=== PATIENT | female | born 1990 | race American Indian/Alaskan Native ===

== ENCOUNTER 2016-08-04 10:12 | Emergency (ER) | payer OTHER ==
--- NOTE | 2016-08-04 11:06 | Emergency Department Report ---
Chief Complaint: Vaginal Bleeding Stated Complaint: ABD PAIN/VAGINAL BLEEDING Time Seen by Provider: 08/04/16 10:59 - HPI History of Present Illness: 25-year-old female presents today with vaginal bleeding since yesterday was doing some heavy lifting. Positive for home test 6. Last menstrual period was June 22 and states she had spotting July 13. Positive for rash or discharge and abdominal pain. Denies fever, chills, nausea, vomiting, urinary symptoms, chest pain, shortness of breath. - ROS Review of Systems: Per HPI - Exam Vital Signs: Vital Signs 08/04/16 10:46 Temperature 98.0 F Pulse Rate 79 Respiratory 16 Rate Blood Pressure 108/65 O2 Sat by Pulse 100 Oximetry Physical Exam: General: 25-year-old female in no acute distress. Well-developed, well- nourished. CV: Regular rate and rhythm. Lungs: Clear to auscultation bilaterally. Abdomen: Tenderness to palpation of the left lower quadrant. No guarding or rebound tenderness. MSE screening note: Focused history and physical exam performed. Due to findings the following was ordered: ED Disposition for MSE Condition: Stable
[2016-08-04 11:31] LABS: Basophils % (Auto) 0.3 % (0.0-1.8); Eosinophils % (Auto) 1.8 % (0.0-4.3); Hematocrit 36.9 % (30.3-42.9); Hemoglobin 12.3 gm/dl (10.1-14.3); Mean Corpuscular HGB Conc 33 % (30-34); Mean Corpuscular Hemoglobin 30 pg (28-32); Mean Corpuscular Volume 92 fl (79-97); Platelet Count 201 K/mm3 (140-440); Red Blood Count 4.03 M/mm3 (3.65-5.03); Red Cell Distribution Width 13.6 % (13.2-15.2); White Blood Count 4.9 K/mm3 (4.5-11.0)
[2016-08-04 11:43] LABS: BUN/Creatinine Ratio 13.33; Blood Urea Nitrogen 8 mg/dL (7-17); Carbon Dioxide 24 mmol/L (22-30); Chloride 105.2 mmol/L (98-107); Glucose 75 mg/dL (65-100); Potassium 3.7 mmol/L (3.6-5.0); Sodium 139 mmol/L (137-145)
[2016-08-04 11:49] LABS: Anion Gap 14 mmol/L
[2016-08-04 11:53] LABS: Bilirubin,Urine NEG (Negative); Blood,Urine NEG (Negative); Ketones,Urine NEG (Negative); Leukocyte Esterase,Urine SM (Negative); Mucus,Urine FEW /HPF; Nitrite,Urine NEG (Negative); Protein,Urine <15 mg/dL mg/dL (Negative); Urobilinogen,Urine < 2.0 mg/dL (<2.0)
--- NOTE | 2016-08-04 12:57 | Ultrasound Report ---
ULTRASOUND OB LESS THAN 14 WEEKS - TRANSABDOMINAL AND TRANSVAGINAL INDICATION: Vaginal bleeding. Serum beta-hCG of 163.5 units. COMPARISON: None similar. FINDINGS: Transabdominal and transvaginal pelvic sonography performed in this patient with LMP of 07/13/2016 and estimated menstrual age of 3 weeks and 1 day, though limited due to overlying bowel gas and patient's tolerance level. An anteverted uterus measuring approximately 8.2 x 3.2 x 4.1 cm demonstrates bilaminar endometrial thickness of approximately 1 cm towards the fundus on endovaginal image 7. Cervix closed. Minimal pelvic free fluid. Right ovary not visualized. Left ovary is 2.3 x 1.7 x 2.3 cm with a small, 8 mm follicular cyst. CONCLUSION: 1. No sonographic evidence of a viable intrauterine gestation at this time, as described. 2. Right ovary not visualized. Please also correlate clinically, with serial serum beta-hCG values and/or followup sonogram, as warranted. Thank you for the opportunity to participate in this patient's care.
[2016-08-04 20:29] VITALS: BP 122/73
[2016-08-04] MEDS ORDERED: TYLENOL PO ONE (21:08)
--- NOTE | 2016-08-04 21:15 | Emergency Department Report ---
HPI - General Chief Complaint: Vaginal Bleeding Time Seen by Provider: 08/04/16 10:59 - HPI HPI: The patient is a 25-year-old female , EGA 4 weeks, who presents for evaluation of abdominal pain. The patient reports constant cramping bilateral lower abdominal pain since 9 AM this morning, 10 out of 10 in severity, and associated with mild to moderate constant vaginal bleeding of same duration. The patient denies fever, chills, night sweats, diarrhea, blood in the stool, dark tarry stool, dysuria, hematuria, flank pain, genital discharge, inability to pass flatus. ED Past Medical Hx - Past Medical History Hx Hypertension: No Hx CVA: No Hx Heart Attack/AMI: No Hx Congestive Heart Failure: No Hx Diabetes: No Hx Deep Vein Thrombosis: No Hx Pulmonary Embolism: No Hx GERD: No Hx Liver Disease: No Hx Renal Disease: No Hx Sickle Cell Disease: No Hx Arthritis: No Hx Headaches / Migraines: No Hx Seizures: No Hx Kidney Stones: No Hx Psychiatric Treatment: No Hx Asthma: Yes Hx Tuberculosis: No Hx Dementia: No Hx HIV: No - Surgical History Hx Coronary Stent: No Hx Open Heart Surgery: No Hx Pacemaker: No Hx Internal Defibrillator: No Hx Cholecystectomy: No Hx Appendectomy: No Hx Breast Surgery: No - Social History Smoking Status: Never Smoker Substance Use Type: None - Medications Home Medications: Home Medications Medication Instructions Recorded Confirmed Last Taken Type Albuterol 2 puff IH BID PRN 01/05/16 08/04/16 Unknown History Acetaminophen/Codeine [Tylenol #3] 1 tab PO Q6H PRN #10 tab 08/04/16 Unknown Rx Ondansetron [Zofran TAB] 4 mg PO Q8HR PRN #14 tablet 08/04/16 Unknown Rx ED Review of Systems ROS: Stated complaint: ABD PAIN/VAGINAL BLEEDING Other details as noted in HPI Constitutional: denies: fever ENT: denies: throat or neck pain Respiratory: denies: cough, shortness of breath Cardiovascular: denies: chest pain Endocrine: denies unexplained weight loss or gain Gastrointestinal: reports abdominal pain, nausea Genitourinary: denies: dysuria Musculoskeletal: denies: leg swelling Skin: denies: rash Neurological: denies: headache Hematological/Lymphatic: denies: easy bleeding or easy bruising Psych: denies sadness or hopelessness Physical Exam - Physical Exam Vital Signs: Vital Signs 08/04/16 08/04/16 08/04/16 10:46 20:05 20:10 Temperature 98.0 F 98.7 F Pulse Rate 79 78 Respiratory 16 26 H 16 Rate Blood Pressure 108/65 Blood Pressure 122/73 [Left] O2 Sat by Pulse 100 99 99 Oximetry Physical Exam: General: well-nourished, well-developed, no acute distress Head: Normocephalic, atraumatic Eyes: normal sclera ENT: Mucous membranes are pink and moist Neck: trachea midline, neck supple Respiratory: Breath sounds equal bilaterally, no wheezing, rales, or rhonchi Cardio: S1 and S2 present, no murmurs, rubs, gallops, capillary refill is brisk Abdomen: Normoactive bowel sounds, soft abdomen, suprapubic and bilateral lower abd tenderness present, no rigidity, no guarding or rebound tenderness Musc: No pitting edema Skin: No rash Neuro: no facial drooping, normal speech Psych: Normal affect ED Course Vital Signs 08/04/16 08/04/16 08/04/16 10:46 20:05 20:10 Temperature 98.0 F 98.7 F Pulse Rate 79 78 Respiratory 16 26 H 16 Rate Blood Pressure 108/65 Blood Pressure 122/73 [Left] O2 Sat by Pulse 100 99 99 Oximetry ED Medical Decision Making - Lab Data Result diagrams: 08/04/16 11:14 08/04/16 11:14 - Medical Decision Making The patient was seen and examined by myself. The patient is placed on a aboriginal liaison officer and continuous pulse ox. On initial evaluation, the patient was found to be in no distress. Evaluation orders are placed. The patient given a tablet of Tylenol for her pain. Lab results revealed positive beta hCG of 135, and otherwise were non-concerning including WBC, hemoglobin, hematocrit, coags, and Rh+ blood type. Ultrasound the pelvis is negative for IUP. The patient is informed of suspicion of miscarriage versus ectopic . The patient was reevaluated and reported that their symptoms were markedly improved. The patient is stable for discharge with outpatient follow-up. The patient is given follow-up and return instructions, including to receive repeat beta hCG in 48 hours. The patient expressed understanding and agreed with the plan. The patient is discharged in stable condition. Critical care attestation.: If time is entered above; I have spent that time in minutes in the direct care of this critically ill patient, excluding procedure time. ED Disposition Clinical Impression: Threatened miscarriage in early , Abdominal pain, acute, periumbilical Disposition: DISCHARGED TO HOME OR SELFCARE Is pt being admited?: No Does the pt Need Aspirin: No Condition: Stable Instructions: Threatened Miscarriage (ED) Additional Instructions: Your ultrasound was unable to identify a normal intrauterine , and also was not able to rule out an ectopic . Make sure to follow-up with your [facility] within the next 48 hours for repeat B-HCG testing and trending. Your beta hCG level should double in 2 days if your is progressing as normal. You could have an ectopic and you must immediately present to an emergency department should you develop worsening of your symptoms or severe pain, vaginal bleeding, lightheadedness, passing out, confusion, or fever. Referrals: PRIMARY CARE [Primary Care Provider] - 3-5 Days [facility] [Provider Group] - 3-5 Days Time of Disposition: 21:11
== END 2016-08-04 21:42 | disposition home or self-care (01) ==
LOC: ED 10:12
DX: O20.0 Threatened abortion (principal); O26.891 Other specified pregnancy related conditions, first trimester; R10.33 Periumbilical pain; Z3A.01 Less than 8 weeks gestation of pregnancy
CPT/HCPCS: 36415; 76801; 76817; 80048; 81001; 84702; 85025; 86900; 86901

== ENCOUNTER 2017-11-21 11:39 | Emergency (ER) | payer OTHER ==
[2017-11-21] MEDS ORDERED: TYLENOL PO ONE (12:24)
--- NOTE | 2017-11-21 12:33 | Emergency Department Report ---
Chief Complaint: Earache Stated Complaint: FLU LIKE SYMPTOMS Time Seen by Provider: 11/21/17 12:23 - HPI History of Present Illness: 26 year-old female presents to the emergency department with a 4-5 day history of body aches, nausea without vomiting, fever, back pain, earache. The right ear is worse in the left. She was seen at [facility] 2 days ago and says that she was diagnosed with exhaustion. She feels like the symptoms are worse now. No recent travel or sick contacts at home. She denies any past medical history. - ROS Review of Systems: Positive for Back pain, body aches, occasional cough, fever Negative for dysuria, vaginal bleeding or discharge, chest pain, shortness of breath - Exam Vital Signs: Vital Signs 11/21/17 11:46 Temperature 100.8 F H Pulse Rate 92 H Respiratory 16 Rate Blood Pressure 116/65 O2 Sat by Pulse 100 Oximetry Physical Exam: Bilateral external ear canals and tympanic membranes appear normal. Normal oral pharynx. Heart and lungs are normal auscultation. Patient appears uncomfortable. MSE screening note: Focused history and physical exam performed. Due to findings the following was ordered: We have ordered a CBC, CMP, urinalysis, UTI and chest x-ray ED Disposition for MSE Condition: Stable Referrals: PRIMARY CARE, [Primary Care Provider] - 3-5 Days
[2017-11-21 12:57] LABS: Bilirubin,Urine NEG (Negative); Blood,Urine SM (Negative); Color,Urine Yellow (Yellow); Mucus,Urine FEW /HPF; Urobilinogen,Urine < 2.0 mg/dL (<2.0)
[2017-11-21 13:13] LABS: Basophils % (Auto) 0.4 % (0.0-1.8); Hematocrit 33.9 % (30.3-42.9); Hemoglobin 11.8 gm/dl (10.1-14.3); Lymphocytes % (Auto) 33.2 % (13.4-35.0); Mean Corpuscular HGB Conc 35 % (30-34); Mean Corpuscular Hemoglobin 31 pg (28-32); Mean Corpuscular Volume 88 fl (79-97); Monocytes # (Auto) 0.3 K/mm3 (0.0-0.8); Monocytes % (Auto) 8.3 % (0.0-7.3); Platelet Count 159 K/mm3 (140-440); Red Blood Count 3.86 M/mm3 (3.65-5.03); Red Cell Distribution Width 12.6 % (13.2-15.2)
[2017-11-21 13:31] LABS: Alanine Aminotransferase 10 units/L (7-56); Albumin 3.9 g/dL (3.9-5); BUN/Creatinine Ratio 10; Blood Urea Nitrogen 8 mg/dL (7-17); Calcium 8.9 mg/dL (8.4-10.2); Hemolysis Index 4
[2017-11-21] MEDS ORDERED: ZOFRAN IM ONE (14:38)
[2017-11-21] MEDS ORDERED: NACL 0.9% 1000 ML 1,000 ML IV ONE (14:38)
[2017-11-21] MEDS ORDERED: TORADOL IV ONE (14:38)
--- NOTE | 2017-11-21 15:59 | XRay Report ---
FINAL REPORT EXAM: XR CHEST ROUTINE 2V HISTORY: cough with fever TECHNIQUE: Frontal and lateral chest x-ray. PRIORS: None. FINDINGS: Cardiac and mediastinal silhouette within normal limits. Lungs are normally expanded, without significant vascular congestion. No focal consolidation, pleural effusion or apparent pneumothorax. Bony thorax grossly unremarkable. IMPRESSION: 1. No acute consolidation.
--- NOTE | 2017-11-21 17:16 | Emergency Department Report ---
HPI - General Chief Complaint: Earache Time Seen by Provider: 11/21/17 12:23 - HPI HPI: 26 year-old female presents to the emergency department with a 4-5 day history of body aches, nausea without vomiting, fever, back pain, earache. The right ear is worse in the left. She was seen at [facility] days ago and says that she was diagnosed with exhaustion. She feels like the symptoms are worse now. No recent travel or sick contacts at home. Nasal congestion proceeded symptoms that started 4-5 days ago. Denies that she has been having nasal congestion and runny nose over the last 2 weeks due to pollen. Denies any coughing, shortness of breath or chest pain. She denies any past medical history. Patient reports that she Prior to going to the [facility] ,she says she went somewhere else. She is having generalized body ache and earache at 4 out of 10. Achy nothing makes it better and nothing makes it worse. Patient denies any vaginal discharge, vaginal bleeding or any abdominal pain at present. Last menstrual cycle was 11/13/2017. She has no concern for STDs. ED Past Medical Hx - Past Medical History Previous Medical History?: Yes Hx Hypertension: No Hx CVA: No Hx Heart Attack/AMI: No Hx Congestive Heart Failure: No Hx Diabetes: No Hx Deep Vein Thrombosis: No Hx Pulmonary Embolism: No Hx GERD: No Hx Liver Disease: No Hx Renal Disease: No Hx Sickle Cell Disease: No Hx Arthritis: No Hx Headaches / Migraines: No Hx Seizures: No Hx Kidney Stones: No Hx Psychiatric Treatment: No Hx Asthma: Yes Hx Tuberculosis: No Hx Dementia: No Hx HIV: No - Surgical History Past Surgical History?: No Hx Coronary Stent: No Hx Open Heart Surgery: No Hx Pacemaker: No Hx Internal Defibrillator: No Hx Cholecystectomy: No Hx Appendectomy: No Hx Breast Surgery: No - Family History Family history: no significant - Social History Smoking Status: Never Smoker Substance Use Type: None - Medications Home Medications: Home Medications Medication Instructions Recorded Confirmed Last Taken Type Albuterol 2 puff IH BID PRN 01/05/16 08/04/16 Unknown History Acetaminophen/Codeine [Tylenol #3] 1 tab PO Q6H PRN #10 tab 08/04/16 Unknown Rx Ondansetron [Zofran TAB] 4 mg PO Q8HR PRN #14 tablet 08/04/16 Unknown Rx Amoxicillin/K Clav Tab [Augmentin 1 tab PO Q12HR 10 Days #20 tab 11/21/17 Unknown Rx 875 mg] Cetirizine HCl [ZyrTEC] 10 mg PO QAM 14 Days #14 tab-cap 11/21/17 Unknown Rx Fluticasone [Flonase] 1 spray NS QDAY 14 Days #1 bottle 11/21/17 Unknown Rx Ibuprofen [Motrin] 600 mg PO Q8H PRN #12 tablet 11/21/17 Unknown Rx ED Review of Systems ROS: Stated complaint: FLU LIKE SYMPTOMS Other details as noted in HPI Comment: All other systems reviewed and negative Constitutional: weakness Eyes: denies: eye pain, eye discharge ENT: ear pain, congestion. denies: throat pain, dental pain, hearing loss Respiratory: no symptoms reported Cardiovascular: denies: chest pain, palpitations, dyspnea on exertion, edema, syncope, paroxysmal nocturnal dyspnea Gastrointestinal: nausea. denies: abdominal pain, vomiting, diarrhea, constipation, hematemesis, melena, hematochezia Genitourinary: denies: urgency, dysuria, frequency, hematuria, discharge, abnormal menses, dyspareunia Musculoskeletal: back pain, myalgia. denies: joint swelling, arthralgia Skin: denies: rash Neurological: weakness. denies: headache, numbness, paresthesias, confusion, abnormal gait, vertigo Physical Exam - Physical Exam Vital Signs: Vital Signs 11/21/17 11/21/17 11:46 15:12 Temperature 100.8 F H Pulse Rate 92 H Respiratory 16 20 Rate Blood Pressure 116/65 O2 Sat by Pulse 100 Oximetry Vital Signs (72 hours) 11/21/17 11/21/17 11/21/17 11:46 15:12 17:33 Temperature 100.8 F H 97.8 F Pulse Rate 92 H 86 Respiratory 16 20 20 Rate Blood Pressure 116/65 Blood Pressure 122/78 [Left] O2 Sat by Pulse 100 Oximetry General: This is a 26-year-old female well-nourished well-developed in no acute distress. Physical Exam: Head: Normocephalic atraumatic Ears:BIateral TM congested without erythema . No loss of bony landmarks. Joel EAC with normal exam. No mastoid bone tenderness. Mouth: Moist, no pharyngeal erythema or exudate . Positive tonsillar enlargement without tonsillar erythema or exudate. UVULA midline and oral airways patent. No peritonsillar abscess Neck: Nontender to palpate, supple, normal range of motion. No adenopathy. No c- spine tenderness. Nose: Bilateral nasal mucosa congested/erythema with clear drainage. Maxillary and frontal sinuses non-tender to palpate. Eyes: Bilateral Sclerae and conjunctiva without injection. Bilateral pupils equal and reactive to light. Bilateral lids are normal. Normal accommodation.BEOMI Lungs: Clear to auscultate bilaterally, no rhonchi wheezes or rales. Normal work of breathing and no chest wall tenderness CV: S1, S2. Regular rate and rhythm negative murmur. Capillary refill is less than 3 seconds Abdomen: Nontender to palpation in all quadrants: No guarding or rebound tenderness. Positive bowel sounds in all quadrants Extremity: No clubbing, cyanosis or edema. +2 pulses in all extremities and no neurovascular compromise Neurological: GCS at 15, Pt is alert and oriented 3 speech is clear . Bilateral hand belt press operator strong and equal. Normal gait. Negative Romberg and no pronator drift. Normal Reflexes. No motor or sensory deficit Back: No vertebral tenderness, no paraspinal tenderness. Ambulates without any difficulties. Skin: Clean dry and intact, no rashes or lesions Psych: Normal mood and behavior ED Course Vital Signs 11/21/17 11/21/17 11:46 15:12 Temperature 100.8 F H Pulse Rate 92 H Respiratory 16 20 Rate Blood Pressure 116/65 O2 Sat by Pulse 100 Oximetry Vital Signs (72 hours) 11/21/17 11/21/17 11/21/17 11:46 15:12 17:33 Temperature 100.8 F H 97.8 F Pulse Rate 92 H 86 Respiratory 16 20 20 Rate Blood Pressure 116/65 Blood Pressure 122/78 [Left] O2 Sat by Pulse 100 Oximetry - Reevaluation(s) Reevaluation #1: 11/21/17 18:43 Patient given normal saline 1 L, Zofran 4 mg IV, Toradol 30 mg IV and Tylenol 650 mg when necessary emergency room. Upon reevaluation, patient's that she is feeling better. Her vital signs are stable. ED Medical Decision Making - Lab Data Result diagrams: 11/21/17 13:03 11/21/17 13:03 Lab Results 11/21/17 11/21/17 11/21/17 Range/Units 12:39 12:39 13:03 WBC 3.1 L (4.5-11.0) K/mm3 RBC 3.86 (3.65-5.03) M/mm3 Hgb 11.8 (10.1-14.3) gm/dl Hct 33.9 (30.3-42.9) % MCV 88 (79-97) fl MCH 31 (28-32) pg MCHC 35 H (30-34) % RDW 12.6 L (13.2-15.2) % Plt Count 159 (140-440) K/mm3 Lymph % (Auto) 33.2 (13.4-35.0) % [place] % (Auto) 8.3 H (0.0-7.3) % Eos % (Auto) 0.0 (0.0-4.3) % Baso % (Auto) 0.4 (0.0-1.8) % Lymph # 1.0 L (1.2-5.4) K/mm3 [place] # 0.3 (0.0-0.8) K/mm3 Eos # 0.0 (0.0-0.4) K/mm3 Baso # 0.0 (0.0-0.1) K/mm3 Seg Neutrophils % 58.1 (40.0-70.0) % Seg Neutrophils # 1.8 (1.8-7.7) K/mm3 Sodium (137-145) mmol/L Potassium (3.6-5.0) mmol/L Chloride (98-107) mmol/L Carbon Dioxide (22-30) mmol/L Anion Gap mmol/L BUN (7-17) mg/dL Creatinine (0.7-1.2) mg/dL Estimated GFR ml/min BUN/Creatinine Ratio % Glucose (65-100) mg/dL Calcium (8.4-10.2) mg/dL Total Bilirubin (0.1-1.2) mg/dL AST (5-40) units/L ALT (7-56) units/L Alkaline Phosphatase (35-129) units/L Total Protein (6.3-8.2) g/dL Albumin (3.9-5) g/dL Albumin/Globulin Ratio % HCG, Qual (Negative) Urine Color Yellow (Yellow) Urine Turbidity Clear (Clear) Urine pH 6.0 (5.0-7.0) Ur Specific [place] 1.018 (1.003-1.030) Urine Protein 30 mg/dl (Negative) mg/dL Urine Glucose (UA) Neg (Negative) mg/dL Urine Ketones Neg (Negative) mg/dL Urine Blood Sm (Negative) Urine Nitrite Neg (Negative) Urine Bilirubin Neg (Negative) Urine Urobilinogen < 2.0 (<2.0) mg/dL Ur Leukocyte Esterase Sm (Negative) Urine WBC (Auto) 4.0 (0.0-6.0) /HPF Urine RBC (Auto) 4.0 (0.0-6.0) /HPF U Epithel Cells (Auto) 5.0 (0-13.0) /HPF Urine Mucus Few /HPF Monoscreen (Negative) Group A Strep Rapid Negative (Negative) 11/21/17 11/21/17 11/21/17 Range/Units 13:03 13:03 17:31 WBC (4.5-11.0) K/mm3 RBC (3.65-5.03) M/mm3 Hgb (10.1-14.3) gm/dl Hct (30.3-42.9) % MCV (79-97) fl MCH (28-32) pg MCHC (30-34) % RDW (13.2-15.2) % Plt Count (140-440) K/mm3 Lymph % (Auto) (13.4-35.0) % [place] % (Auto) (0.0-7.3) % Eos % (Auto) (0.0-4.3) % Baso % (Auto) (0.0-1.8) % Lymph # (1.2-5.4) K/mm3 [place] # (0.0-0.8) K/mm3 Eos # (0.0-0.4) K/mm3 Baso # (0.0-0.1) K/mm3 Seg Neutrophils % (40.0-70.0) % Seg Neutrophils # (1.8-7.7) K/mm3 Sodium 139 (137-145) mmol/L Potassium 4.1 (3.6-5.0) mmol/L Chloride 101.4 (98-107) mmol/L Carbon Dioxide 25 (22-30) mmol/L Anion Gap 17 mmol/L BUN 8 (7-17) mg/dL Creatinine 0.8 (0.7-1.2) mg/dL Estimated GFR > 60 ml/min BUN/Creatinine Ratio 10 % Glucose 91 (65-100) mg/dL Calcium 8.9 (8.4-10.2) mg/dL Total Bilirubin 0.30 (0.1-1.2) mg/dL AST 15 (5-40) units/L ALT 10 (7-56) units/L Alkaline Phosphatase 42 (35-129) units/L Total Protein 7.2 (6.3-8.2) g/dL Albumin 3.9 (3.9-5) g/dL Albumin/Globulin Ratio 1.2 % HCG, Qual Negative (Negative) Urine Color (Yellow) Urine Turbidity (Clear) Urine pH (5.0-7.0) Ur Specific [place] (1.003-1.030) Urine Protein (Negative) mg/dL Urine Glucose (UA) (Negative) mg/dL Urine Ketones (Negative) mg/dL Urine Blood (Negative) Urine Nitrite (Negative) Urine Bilirubin (Negative) Urine Urobilinogen (<2.0) mg/dL Ur Leukocyte Esterase (Negative) Urine WBC (Auto) (0.0-6.0) /HPF Urine RBC (Auto) (0.0-6.0) /HPF U Epithel Cells (Auto) (0-13.0) /HPF Urine Mucus /HPF Monoscreen Negative (Negative) Group A Strep Rapid (Negative) - Medical Decision Making ED course: Patient here complaining of feeling in sick with flulike symptoms. She's been sitting on [facility] recently and she said that they treated her for back pain and when she went home she felt the same symptoms. Now today she is here for earache with some nausea. She is reporting generalized weakness. Patient laboratory findings CBC normal except for white count is 3.1 last white count in 2017 was 4.9. Patient does not have any information to what her normal white count is. Chemistry is stable, urinalysis is normal, strep negative, mono negative and test is negative. I discussed the patient with my physical findings she has upper respiratory infection that has been going on for over 2 weeks and worsening over the last 4-[address] her in Zyrtec, Flonase and antibiotics along with fever hand straightener. She was given normal saline 1 L and emergency room, Zofran 4 mg IV and Toradol 30 mg IV which relieved her symptoms. Patient vital signs are stable and she is afebrile and says she is feeling better. Patient does have access to primary care and I discussed with her she needs to follow up with her primary care on Thursday follow-up generalized malaise, low white count and upper respiratory symptoms have been lasting over 2 weeks.. She voiced understanding and discharged home in stable condition with prescription for Augmentin, Flonase, Zyrtec and Motrin. Critical care attestation.: If time is entered above; I have spent that time in minutes in the direct care of this critically ill patient, excluding procedure time. ED Disposition Clinical Impression: Malaise and fatigue, Fever in adult Upper respiratory infection Qualifiers: URI type: unspecified URI Qualified Code(s): J06.9 - Acute upper respiratory infection, unspecified Leukopenia Qualifiers: Leukopenia type: unspecified Qualified Code(s): D72.819 - Decreased white blood cell count, unspecified Disposition: - TO HOME OR SELFCARE Is pt being admited?: No Does the pt Need Aspirin: No Condition: Stable Instructions: Musculoskeletal Pain (ED), Upper Respiratory Infection (ED), Fever in Adults (ED), Fatigue (ED) Additional Instructions: Follow-up the primary care physician on Thursday. Call to schedule an appointment for physical exams. He will need to have repeat blood level drawn because U White blood cell was a 3.1 which is on the low side. Take medication as prescribed Increase her fluid intake If his symptoms worsen, return to the emergency room Prescriptions: Amoxicillin/K Clav Tab [Augmentin 875 mg] 1 tab PO Q12HR 10 Days #20 tab Cetirizine HCl [ZyrTEC] 10 mg PO QAM 14 Days #14 tab-cap Fluticasone [Flonase] 1 spray NS QDAY 14 Days #1 bottle Ibuprofen [Motrin] 600 mg PO Q8H PRN #12 tablet PRN Reason: Pain Referrals: PRIMARY CAREMD [Primary Care Provider] - 11/23/17 [facility] [Outside] - 11/23/17 Forms: Work/School Release Form(ED)
[2017-11-21 17:35] VITALS: BP 122/78
== END 2017-11-21 19:11 | disposition home or self-care (01) ==
LOC: ED 11:39
DX: J06.9 Acute upper respiratory infection, unspecified (principal); D72.818 Other decreased white blood cell count; R53.81 Other malaise; R53.83 Other fatigue; J45.909 Unspecified asthma, uncomplicated
CPT/HCPCS: 36415; 71046; 80053; 81001; 84703; 85025; 86308; 87116; 87430; 96361; 96372; 96374; 99284; J1885; J2405; J7030

== ENCOUNTER 2018-02-18 16:35 | Emergency (ER) | payer OTHER ==
[2018-02-18 17:21] VITALS: BP 119/83
== END 2018-02-18 22:15 | disposition left against medical advice (07) ==
LOC: ED 16:35
DX: K08.89 Other specified disorders of teeth and supporting structures (principal); Z53.21 Procedure and treatment not carried out due to patient leaving prior to being seen by health care provider